=== PATIENT | female | born 1965 | race Caucasian/White ===

== ENCOUNTER 2018-10-24 07:46 | Day surgery (SDC) | payer BC ==
[2018-10-17 15:56] LABS: APPEARANCE,URINE Clear (CLEAR); BILIRUBIN,URINE Negative (NEGATIVE); COLOR,URINE Yellow (YELLOW); GLUCOSE, URINE (UA) Negative (NEGATIVE); KETONES,URINE Negative (NEGATIVE); LEUKOCYTE ESTERASE ,URINE Negative (NEGATIVE); NITRATE,URINE Negative (NEGATIVE); OCCULT BLOOD,URINE Negative (NEGATIVE); PH,URINE 5.5 (5.0-8.0); PROTEIN,URINE Negative (NEGATIVE); UROBILINOGEN,URINE 0.2 mg/dL (0.2-1.0)
[2018-10-17 15:59] LABS: BASOPHILS % (AUTO) 0.8 % (0.0-5.0); EOSINOPHILS % (AUTO) 5.5 % (0.0-8.0); HEMATOCRIT 38.5 % (36-48); LYMPHOCYTES % (AUTO) 24.9 % (21.0-51.0); MEAN CORPUSCULAR HEMOGLOBIN 31.7 pg (27.0-33.0); MEAN CORPUSCULAR HGB CONC 33.7 g/dL (32.0-36.0); MONOCYTES % (AUTO) 7.8 % (3.0-13.0); PLATELET COUNT (AUTO) 295 K/uL (130-400); RED CELL DISTRIBUTION WIDTH 14.1 % (11.0-15.5); WHITE BLOOD COUNT (AUTO) 8.3 K/uL (4.8-10.8)
[2018-10-17 16:03] VITALS: BP 128/84
[2018-10-24] VITALS (18 sets, daily range): BP systolic 129–150; BP diastolic 59–80
[~2018-10-24] VITALS: Ht 167.6 cm; Wt 77.2 kg
[~2018-10-24 07:46] MED LIST: IBUP-14 PO; LACTATED RINGERS 1000ML 1,000 ML IV SCH; LORA2TAB2 PO; TRAM50TA4 PO; TYL3 PO
[2018-10-24] MEDS ORDERED: BUPIVACAINE/PF 0.25% 30ML VIAL IJ ONE (08:19)
[2018-10-24] MEDS ORDERED: LIDOCAINE HCL 1% MDV 50ML VIAL ONE (08:20)
[2018-10-24] MEDS ORDERED: LEVO5TAB29 PO (09:11)
[2018-10-24] MEDS ORDERED: PHEN15CA PO (09:11)
[2018-10-24] MEDS ORDERED: ONDANSETRON HCL 4 MG/2 ML VIAL ONE (09:13)
[2018-10-24] MEDS ORDERED: DEXAMETHASONE SOD PHOSPHATE 10MG/ML 1ML VIAL ONE (09:13)
[2018-10-24] MEDS ORDERED: LIDOCAINE PF 2% 5ML ABBOJECT ONE (09:13)
[2018-10-24] MEDS ORDERED: SUCCINYLCHOLINE 200MG/10ML SYR ONE (09:13)
[2018-10-24] MEDS ORDERED: GLYCOPYRROLATE 1 MG/5 ML SYRINGE ONE (09:14)
[2018-10-24] MEDS ORDERED: NEOSTIGMINE 5MG/5ML SYR IV ONE (09:14)
[2018-10-24] MEDS ORDERED: MIDAZOLAM HCL 1 MG/ML 2ML VIAL ONE (09:14)
[2018-10-24] MEDS ORDERED: ROCURONIUM 10MG/1ML SYR 10 MG/ML ML ONE (09:14)
[2018-10-24] MEDS ORDERED: PROPOFOL 10 MG/ML 20ML VIAL IV ONE (09:14)
[2018-10-24] MEDS ORDERED: FENTANYL CITRATE PF 50 MCG/1 ML 2ML VIAL ONE (09:14)
[2018-10-24] MEDS ORDERED: MEPERIDINE-PF 25 MG/ML SYG ONE (10:53)
== END 2018-10-24 12:16 | disposition home or self-care (01) ==
LOC: DAH 07:46
PROVIDERS: ATTEND Surgery
DX: D17.79 Benign lipomatous neoplasm of other sites (principal); Z90.10 Acquired absence of unspecified breast and nipple; Z98.890 Other specified postprocedural states; Z79.899 Other long term (current) drug therapy
CPT/HCPCS: 23071; 36415; 81003; 85025; A4450; J0330; J1030; J1100; J2001; J2175; J2250; J2405; J2704; J2710; J3010; J3490 ×3; J7120

== ENCOUNTER → 2024-02-03 | Outpatient (CLI) | payer OTHER ==
[~2024-02-03] MED LIST changes: -LACTATED RINGERS 1000ML 1,000 ML IV SCH; +LEVO5TAB29 PO; +PHEN15CA61 PO
== END | disposition home or self-care (01) ==
LOC: RAH 07:40
PROVIDERS: ATTEND Family Medicine
DX: Z13.6 Encounter for screening for cardiovascular disorders (principal)
CPT/HCPCS: 75571